=== PATIENT | male | born 1970 | race Caucasian/White ===

== ENCOUNTER 2024-09-29 15:56 | Emergency (ER) | payer MEDICAID, SELFPAY ==
--- NOTE | 2024-09-29 16:21 | PD.EDADULT ---
ED General RME/HPI General Chief complaint: Wound/Laceration Stated complaint: LACERATION TO LEFT ELBOW Time Seen by Provider: 09/29/24 16:08 Arrival date/time: 09/29/24 15:56 RME / HPI RME / HPI narrative: 53-year-old male patient was brought in by law enforcement for medical clearance. Apparently patient fell sustaining laceration to the left elbow. Patient denies any pain to the elbow. Denies any other injury. Tetanus vaccination is unknown. Related Data Previous Rx's ?Medication ?Instructions ?Recorded cephalexin 500 mg capsule 500 mg PO TID 7 days #21 caps 09/29/24 Allergies Allergy/AdvReac Type Severity Reaction Status Date / Time Penicillins Allergy Unknown Verified 01/24/20 13:59 Review of Systems Review of Systems Narrative Review of Systems: Review of system reviewed and within normal limits except mentioned in HPI ED Exam Narrative Physical exam: VITAL SIGNS: Reviewed. GENERAL APPEARANCE: Alert and interactive, follows commands, no acute distress, HEAD AND FACE: Non-traumatic. ENT: PERRL, pink conjunctivitis, eyelid no trauma, Mucous membrane moist. NECK: Supple, nontender, no nuchal rigidity. CHEST: No tenderness, no crepitus, no paradoxical movement, no retractions. LUNGS: Clear, well ventilated, symmetric, no rales, no wheezing, no ronchi, no stridor, good breath sounds bilaterally. HEART: Regular rate, regular rhythm, no murmur, no gallops. ABDOMEN: Soft, positive bowel sounds, nondistended, no guarding, nontender, no rebound, no masses, RECTAL: Deferred. GENITAL: Deferred. NEUROLOGICAL: Gross motor function intact sensory function intact, Appropriate for age. MUSCULOSKELETAL: low back nontender, full range of motion. EXTREMITIES: 2 cm irregular shaped laceration, left elbow at the olecranon area, full range of motion. SKIN: Color pink, dry, no rash, no lacerations, no abrasions, no contusions. LYMPHATICS: Deferred. Course Quality Measures none Orders Category Date Time Status XR elbow LT 2V Stat Exams 09/29/24 16:22 Completed Ibuprofen Tab [Motrin Tab] Med 09/29/24 16:16 Discontinued 800 mg PO X1 ONE Lidocaine 1% 20 ml [Xylocaine 1% 20 ML] Med 09/29/24 16:16 Discontinued 10 ml INFL X1 ONE Tet,Diphth,Pertuss(Acell)-Tdap [Boostrix Vacc] Med 09/29/24 16:16 Discontinued 0.5 ml IMI .ONCE ONE cephALEXin [Keflex] Med 09/29/24 17:14 Discontinued 500 mg PO X1 ONE Vital Signs Vital signs: Vital Signs Temperature 97.9 F 09/29/24 16:30 Respiratory Rate 102 H 09/29/24 16:30 Blood Pressure 149/102 H 09/29/24 16:30 Procedures -ED Laceration Laceration 1: Site: other (Left elbow) Size (cm): 2 Description: irregular Depth: simple, single layer Local Anesthetic: lidocaine 1% Amount of anesthesia used (mL): 5 Pre-repair: wound explored, irrigated extensively (I used 2 L of NS to irrigate the wound. Wound was explored meticulously, I did not notice any foreign body.) and deep structures intact Skin layer closed with: nylon Size (cm): 4-0 Number of sutures: 3 Technique: simple, interrupted MDM Patient data External records reviewed:: None Clinical information provided by:: patient Social determinants that could affect healthcare access:: none Patient has the following chronic illnesses:: None How is presenting disease/condition affected by chronic disease/condition?: no chronic disease Evaluation data The following diagnostics were reviewed and interpreted by me:: radiology exam(s) Lab and/or radiology exams considered but not ordered:: None Interpretation Summary: X-ray of the left elbow showed possible foreign body, no fracture noted. Foreign body possibly on the skin away from the wound Medications Medications considered but not ordered:: None Medication administrations:: Medication Administration History Discontinued Medications Cephalexin HCl (Cephalexin 250 Mg Capsule) 500 mg PO X1 ONE Stop: 09/29/24 17:15 Diphtheria/Tetanus/Acell Pertussis (Diphth,Pertuss(Acell),Tet Vac 0.5 Ml Vial) 0.5 ml IMi .ONCE ONE Stop: 09/29/24 16:17 Last Admin: 09/29/24 16:30 Dose: 0.5 ml Documented By: TONY Ibuprofen (Ibuprofen Tab 400 Mg Tablet) 800 mg PO X1 ONE Stop: 09/29/24 16:17 Last Admin: 09/29/24 16:29 Dose: 800 mg Documented By: TONY Lidocaine HCl (Lidocaine Hcl 1% 20 Ml Vial) 10 ml INFL X1 ONE Stop: 09/29/24 16:17 Last Admin: 09/29/24 16:31 Dose: 10 ml Documented By: TONY Boostrix, Motrin, Keflex Consultations Consultation(s) initiated? (list below): No Diagnosis Differential Diagnosis ED Complaint MDM: Elbow fracture elbow laceration, elbow pain status post fall Most likely diagnosis given after review of the tests above:: Elbow laceration status post fall, medical clearance for incarceration Admission Indicated Admission indicated?: not indicated Explain why admission is indicated or not indicated:: Stable Admission Request Was there a request for admission?: No Disposition Plan Disposition Plan: Discharge Discharge Attestation Discharge Attestation: Patient condition: Stable Medical Decision Making MDM Narrative MDM Narrative: 53-year-old male patient was brought in by law enforcement for medical clearance. Apparently patient fell sustaining laceration to the left elbow. Patient denies any pain to the elbow. Denies any other injury. Tetanus vaccination is unknown. Differential Diagnosis Differential Diagnosis: Elbow fracture elbow laceration, elbow pain status post fall Discharge Plan Plan Patient Disposition: HOME (Self Care) Prescriptions/Referrals Prescriptions/Med Rec: New cephalexin 500 mg capsule 500 mg PO TID 7 Days Qty: 21 0RF Referrals: No Primary/Family,Physician [Primary Care Provider] - In 1 week Problem List Clinical Impression: Medical clearance for incarceration, Laceration of elbow Patient/Caregiver Discharge Instructions Discharge Activity: activity as tolerated Education Materials: ED Laceration: All Closures Additional Instructions: Thank you for the opportunity for serving you today. You are stable for discharged . You are advised to: Follow-up with your PCP in 1 to 2 days Return to ED for worsening of symptoms Increase oral fluids Take medication as prescribed Daily dressing with bacitracin as needed For removal of sutures in 7 to 10 days Print Language: American Stand Alone Forms: [employer] Award Info., Patient Portal Info Letter PA/CHANDRAKANT Supervising Physician LUISITO/CHANDRAKANT Supervising Physician: MD Brigitte
--- NOTE | 2024-09-29 16:22 | XR_ITS ---
Examination: Left elbow 2 views Technique one AP lateral left elbow 2 views Exam date and time: September 29, 2024 1637 hours Comparison July 12, 2014 INDICATIONS: Patient fell today puncture injury to the elbow elbow pain. FINDINGS: Soft tissue defect dorsal to the olecranon 1 mm opaque foreign body in the soft tissue dorsal to the olecranon No fracture Small knee effusion IMPRESSION: 1 mm opaque foreign body in the soft tissue dorsal to the olecranon
[2024-09-29] MEDS: IBUPROFEN TAB 400 MG TABLET 800 MG PO (16:29)
[2024-09-29 16:30] VITALS: BP 149/102; RESP 102; TEMP 36.6
[2024-09-29] MEDS: DIPHTH,PERTUSS(ACELL),TET VAC 0.5 ML VIAL IMi (16:30)
[2024-09-29] MEDS: LIDOCAINE HCL 1% 20 ML VIAL 10 ML INFL (16:31)
[2024-09-29] MEDS: cephALEXin 250 MG CAPSULE 500 MG PO (17:32)
== END 2024-09-29 17:37 | disposition home or self-care (01) ==
PROVIDERS: Emergency Provider Emergency Medicine
DX: S51.012A Laceration without foreign body of left elbow, initial encounter (principal); X58.XXXA Exposure to other specified factors, initial encounter; Z23 Encounter for immunization
CPT/HCPCS: 12001; 73070; 90471; 90715; 99283; J3490; A9270